=== PATIENT | female | born 1940 | race Caucasian/White ===

== ENCOUNTER 2022-04-09 10:06 | Emergency (ER) | payer MEDICARE, BC ==
[2022-04-09] MEDS ORDERED: Sodium Chloride 0.9% 10 ML Syringe FLUSH PRN (10:07)
[2022-04-09 11:03] VITALS: BP 179/76; PULSE 70
== END 2022-04-09 12:35 | disposition home or self-care (01) ==
LOC: JP.ED 10:06
DX: N95.2 Postmenopausal atrophic vaginitis (principal); N85.00 Endometrial hyperplasia, unspecified; I12.9 Hypertensive chronic kidney disease with stage 1 through stage 4 chronic kidney disease, or unspecified chronic kidney disease; N18.30 Chronic kidney disease, stage 3 unspecified; E66.9 Obesity, unspecified; F17.210 Nicotine dependence, cigarettes, uncomplicated; Z88.8 Allergy status to other drugs, medicaments and biological substances; Z88.0 Allergy status to penicillin; Z79.82 Long term (current) use of aspirin; Z79.899 Other long term (current) drug therapy; Z68.29 Body mass index [BMI] 29.0-29.9, adult
CPT/HCPCS: 36415; 76830; 76856; 81001; 85025; 99284; J3490

== ENCOUNTER 2023-01-29 18:27 | Emergency (ER) | payer MEDICARE, BC ==
[2023-01-29 20:56] VITALS: BP 151/80; PULSE 104
== END 2023-01-29 21:44 | disposition home or self-care (01) ==
LOC: JP.ED 18:27
DX: N30.00 Acute cystitis without hematuria (principal); E78.00 Pure hypercholesterolemia, unspecified; I12.9 Hypertensive chronic kidney disease with stage 1 through stage 4 chronic kidney disease, or unspecified chronic kidney disease; N18.9 Chronic kidney disease, unspecified; I25.2 Old myocardial infarction; M19.90 Unspecified osteoarthritis, unspecified site; Z79.899 Other long term (current) drug therapy; Z79.82 Long term (current) use of aspirin; Z88.8 Allergy status to other drugs, medicaments and biological substances; Z88.0 Allergy status to penicillin; Z91.048 Other nonmedicinal substance allergy status
CPT/HCPCS: 99283